=== PATIENT | female | born 1945 | race Caucasian/White ===

== ENCOUNTER 2024-03-13 14:08 | Emergency (ER) | payer MEDICARE, OTHER, SELFPAY ==
[2024-03-13 14:15] VITALS: BP 161/89
--- NOTE | 2024-03-13 15:23 | ED.GENMED ---
History of Present Illness
General
Chief Complaint: Fall
Source: patient
Exam Limitations: none
Time Seen by Provider: 03/13/24 15:11
History of Present Illness
History of Present Illness:
79 year old female presents after fall at home. She complains of left hip and knee pain since the fall. History of muscular dystrophy and foot drop. She uses walker. No head strike. No thinners. No other complaint.
Past History
Past History
ED Past Medical History: Hypothyroidism and Other (DROP FOOT)
ED Past Surgical History: Orthopedic
Social History
Tobacco: Non-smoker
Alcohol: None
Drug: None
Personal:
Living: with family
Family History
Family History: Negative Early CAD or CAD
Phy Exam
Physical Exam
Physical Exam:
General: Well appearing female NAD
HEENT: NC/AT no c-spine tenderness
MSK: Left hip and knee slightly tender diffusely. No deformities
Skin: intact.
Course
Orders/Labs/Results
Orders:
Orders
03/13/24 14:18
Electrocardiogram (*1) Urgent
Reason for Study: Bradycardia / Tachycardia
CR Hip - RT w/wo Pel 2-3 Vw* Urgent
Comment:
Reason For Exam: injury
Include a pelvis x-ray?: Yes
CR Knee- Right 4 Or More View* Urgent
Comment:
Reason For Exam: injury
03/13/24 14:19
EKG- Treatment ONCE
Vital Signs
Initial and Last Documented VS:
Initial Vital Signs
Temp Pulse Resp BP Pulse Ox
98.2 F 134 20 161/89 97
03/13/24 14:15 03/13/24 14:15 03/13/24 14:15 03/13/24 14:15 03/13/24 14:15
Last Documented Vital Signs
Temp Pulse Resp BP Pulse Ox
98.2 F 113 20 161/89 97
03/13/24 14:15 03/13/24 14:50 03/13/24 14:15 03/13/24 14:15 03/13/24 14:15
MDM/Problems Addressed
Differential Diagnosis Includes:
Left hip and knee pain after fall. X-rays reviewed and are negative for acute findings. Reassured patient. Stable for discharge.
*Critical Care Note
Total Time (30-74mins, 75-104mins- exclusive of procedures): Not Applicable
ED Attending Note
-
Portions of this chart may have been created with voice recognition software.� Occasional wrong word or��sound alike� substitutions may have occurred due to the inherent limitations of voice recognition software.
Discharge Plan
Departure
Patient Disposition: Home (Routine Discharge)
Date of Disposition: 03/13/24
Time of Disposition: 15:26
Patient with high blood pressure during this ER visit?: No
Discharge Problem:
Fall
Instructions: Contusion (DC)
Prescriptions:
No Action
levothyroxine 50 MCG tablet
50 mcg PO TUFR@0700
acetaminophen 325 MG tablet
650 mg PO Q4HPRN PRN (Reason: MILD PAIN/FEVER/NGUYEN) 0RF
gabapentin 100 mg Capsule
200 mg PO TID
Activity Restrictions/Additional Instructions:
Continue current medication regimen. Return if worse, otherwise follow up with PMD.
Interventions
Interventions:
*Risk Screen - Suicide Last Done: 03/13/24 14:15
*General Assessment Last Done: 03/13/24 14:15
*Neglect/Abuse Screening Last Done: 03/13/24 14:15
ED-Musculoskeletal Assessment Last Done: 03/13/24 15:12
ED- Neurological Assessment Last Done: 03/13/24 15:12
ED-Skin Assessment Last Done: 03/13/24 15:12
Discharge Date and Time
Print Language: INDONESIAN
== END 2024-03-13 15:45 | disposition home or self-care (01) ==
LOC: EMR 14:08
PROVIDERS: EMERGENCY PHYSICIAN Student in an Organized Health Care Education/Training Program; FAMILY PHYSICIAN Internal Medicine
DX: M25.562 Pain in left knee (principal); M25.552 Pain in left hip; W19.XXXA Unspecified fall, initial encounter; G71.00 Muscular dystrophy, unspecified; M21.379 Foot drop, unspecified foot; E03.9 Hypothyroidism, unspecified
CPT/HCPCS: 99283; 73502; 73564; 93005

== ENCOUNTER → 2024-06-13 09:46 | Outpatient (REF) | payer MEDICARE, OTHER, SELFPAY | LOC: HWWDC 09:46 | PROVIDERS: ATTENDING PHYSICIAN Internal Medicine | DX: M81.0 Age-related osteoporosis without current pathological fracture (principal); Z12.31 Encounter for screening mammogram for malignant neoplasm of breast | CPT/HCPCS: 77063; 77067; 77080 ==

== ENCOUNTER → 2024-06-20 08:00 | Outpatient (REF) | payer MEDICARE, OTHER, SELFPAY ==
[2024-06-20 08:57] LABS: % Basophils 0.8 % (0-2); % Eosinophils 1.2 % (0-6); % Immature Granulocytes 0.4 % (0-0.5); % Lymphocytes 25.4 % (20.5-51.1); % Neutrophils 63.2 % (42.2-75.2); Absolute Eosinophils 0.1 10^3/uL (0-0.7); Absolute Lymphocytes 1.2 10^3/uL (1.2-3.4); Absolute Monocytes 0.4 10^3/uL (0.1-0.6); Absolute Neutrophils 3.1 10^3/uL (1.4-6.5); Hematocrit 43.8 % (37.0-47.0); Hemoglobin 14.1 g/dL (12.0-16.0); Mean Corp Hgb Conc. 32.2 g/dL (33.0-37.0); Mean Corpuscular Hgb 30.2 pg (27.0-31.0); Mean Corpuscular Volume 93.8 fL (81.0-99.0); Mean Platelet Volume 9.5 fL (7.4-10.4); Nucleated Red Blood Cells % 0 %; Platelet Count 326 10^3/uL (130-400); Red Blood Cell Count 4.67 10^6/uL (4.20-5.40); Red Cell Dist. Width 12.3 % (11.5-14.5); White Blood Cell Count 4.9 10^3/uL (4.8-10.8)
[2024-06-20 09:24] LABS: ALT (SGPT) 20 U/L (0-35); AST (SGOT) 31 U/L (14-36); Albumin 4.6 g/dl (3.5-5.0); Alkaline Phosphatase 51 U/L (38-126); Blood Urea Nitrogen 21 mg/dl (7-17); Calcium 9.7 mg/dl (8.4-10.2); Carbon Dioxide 32 mmol/L (22-30); Chloride 100 mmol/L (98-107); Glucose 86 mg/dl (70-99); Potassium 4.4 mmol/L (3.5-5.1); Sodium 144 mmol/L (135-145); Total Bilirubin 0.8 mg/dl (0.2-1.3); Total Cholesterol 292 mg/dl (50-199); Total Protein 7.5 g/dl (6.3-8.2); Triglyceride 172 mg/dl (10-149); Very Low Density Lipoprotein 34 mg/dl (0-30); eGFR > 60.00
[2024-06-20 09:32] LABS: HDL Cholesterol 112 mg/dl; LDL Cholesterol, Calculated 146 mg/dl
[2024-06-20 09:54] LABS: TSH 0.85 uIU/ml (0.47-4.68)
== END ==
LOC: REG 08:00
PROVIDERS: ATTENDING PHYSICIAN Internal Medicine
DX: Z00.00 Encounter for general adult medical examination without abnormal findings (principal); G71.00 Muscular dystrophy, unspecified; E78.5 Hyperlipidemia, unspecified
CPT/HCPCS: 36415; 80053; 80061; 84443; 85025

== ENCOUNTER → 2024-10-11 08:50 | Outpatient (REF) | payer MEDICARE, OTHER, SELFPAY | LOC: HWRAD 08:50 | PROVIDERS: ATTENDING PHYSICIAN Physician Assistant Surgical; FAMILY PHYSICIAN Internal Medicine | DX: M54.16 Radiculopathy, lumbar region (principal) | CPT/HCPCS: 72131 ==

== ENCOUNTER → 2025-03-06 07:53 | Outpatient (REF) | payer MEDICARE, OTHER, SELFPAY | LOC: RAD 07:53 | PROVIDERS: ATTENDING PHYSICIAN Student in an Organized Health Care Education/Training Program; FAMILY PHYSICIAN Internal Medicine | DX: I73.9 Peripheral vascular disease, unspecified (principal) | CPT/HCPCS: 93923; 93925 ==